=== PATIENT | male | born 1980 | race Asian ===

== ENCOUNTER 2016-12-22 13:16 | Emergency (ER) | payer OTHER ==
[~2016-12-22] VITALS: Ht 185.4 cm; Wt 81.6 kg
[2016-12-22 14:45] LABS: PLATELET COUNT 349 K/uL (142-355)
[2016-12-22 14:48] LABS: POTASSIUM 3.7 mmol/L (3.6-5.2); SODIUM 138 mmol/L (136-145)
[2016-12-22 16:28] VITALS: BP 156/103; TEMP 98.3
== END 2016-12-22 16:28 | disposition home or self-care (01) ==
LOC: ED 13:16
PROVIDERS: Emergency Medicine
DX: R07.89 Other chest pain (principal)
CPT/HCPCS: 36415; 80053; 82550; 82553; 83880; 84484; 85027; 93005; 99283

== ENCOUNTER 2017-11-20 07:11 | Emergency (ER) | payer OTHER ==
[~2017-11-20] VITALS: Ht 185.4 cm; Wt 81.6 kg
[2017-11-20 07:15] VITALS: TEMP 97.8
[2017-11-20 08:30] VITALS: BP 138/88
== END 2017-11-20 08:30 | disposition home or self-care (01) ==
LOC: ED 07:11
DX: R51 Headache (principal)
CPT/HCPCS: 96360; 96374; 96375; 99284; J1100; J1200; J1885; J2405

== ENCOUNTER 2018-06-14 07:12 | Emergency (ER) | payer OTHER ==
[~2018-06-14] VITALS: Ht 185.4 cm; Wt 81.6 kg
[2018-06-14 07:20] VITALS: TEMP 97.7
[2018-06-14 07:46] LABS: PLATELET COUNT 333 K/uL (142-355)
[2018-06-14 07:53] LABS: POTASSIUM 3.7 mmol/L (3.6-5.2)
[2018-06-14 08:04] VITALS: BP 130/97
== END 2018-06-14 08:15 | disposition home or self-care (01) ==
LOC: ED 07:12
DX: R51 Headache (principal); I10 Essential (primary) hypertension
CPT/HCPCS: 36415; 80053; 85027; 99283; J1885

== ENCOUNTER 2018-11-20 05:22 | Emergency (ER) | payer OTHER ==
[~2018-11-20] VITALS: Ht 185.4 cm; Wt 68.9 kg
[2018-11-20 05:37] VITALS: TEMP 98.7
[2018-11-20 06:07] LABS: PLATELET COUNT 334 K/uL (142-355)
[2018-11-20 06:16] LABS: POTASSIUM 3.9 mmol/L (3.6-5.2)
[2018-11-20 06:44] VITALS: BP 144/96
== END 2018-11-20 06:44 | disposition home or self-care (01) ==
LOC: ED 05:22
PROVIDERS: Internal Medicine
DX: I10 Essential (primary) hypertension (principal); R51 Headache
CPT/HCPCS: 36415; 80053; 85027; 99283

== ENCOUNTER 2019-02-21 21:30 | Emergency (ER) | payer OTHER ==
[~2019-02-21] VITALS: Ht 185.4 cm; Wt 68.9 kg
[2019-02-21 21:40] VITALS: TEMP 99.7
[2019-02-21 23:40] VITALS: BP 139/84
== END 2019-02-21 23:45 | disposition home or self-care (01) ==
LOC: ED 21:30
DX: L76.22 Postprocedural hemorrhage of skin and subcutaneous tissue following other procedure (principal)
CPT/HCPCS: 99281

== ENCOUNTER 2019-09-08 12:45 | Outpatient (CLI) | payer OTHER | END 2019-09-08 21:10 | disposition home or self-care (01) | LOC: RAD 12:45 | DX: M25.532 Pain in left wrist (principal) ==